=== PATIENT | female | born 1985 | race American Indian/Alaskan Native ===

== ENCOUNTER 2017-07-31 21:55 | Emergency (ER) | payer OTHER ==
[2017-07-31 21:55] VITALS: BMI 24.2
--- NOTE | 2017-07-31 22:29 | ED PDOC ---
Arrival/HPI - General Time Seen by Provider: 07/31/17 22:00 Historian: Patient - History of Present Illness Narrative History of Present Illness (Text): 07/31/17 22:34 31 year old female, with no significant past medical history, currently 2 months , presents to the emergency room complaining of chest pain. She states pain is positional and exacerbated with movement. She states she has had this in the past. 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 She denies shortness of breath, fevers, chills, Nausea, vomiting, diarrhea, or any other complaints. Pt. is requesting a work note. Time/Duration: Other (this morning) Symptom Onset: Gradual Symptom Course: Unchanged Activities at Onset: Light Context: Home Past Medical History - Provider Review Nursing Documentation Reviewed: Yes - Infectious Disease Hx of Infectious Diseases: None - Psychiatric Hx Psychophysiologic Disorder: No Hx Substance Use: No - Anesthesia Hx Anesthesia: No Family/Social History - Physician Review Nursing Documentation Reviewed: Yes Family/Social History: No Known Family HX Smoking Status: hookah Hx Alcohol Use: Yes Hx Substance Use: No Allergies/Home Meds Allergies/Adverse Reactions: Allergies No Known Allergies Allergy (Verified 11/03/15 22:04) Home Medications: Home Meds Medication Instructions Recorded Confirmed No Known Home Med 07/31/17 07/31/17 Review of Systems - Physician Review All systems were reviewed & negative as marked: Yes - Review of Systems Constitutional: absent: Fevers, Night Sweats Respiratory: absent: SOB Cardiovascular: Chest Pain Gastrointestinal: absent: Abdominal Pain, Diarrhea, Nausea, Vomiting Musculoskeletal: absent: Back Pain, Neck Pain Skin: absent: Rash Neurological: absent: Headache, Dizziness Physical Exam Vital Signs Reviewed: Yes Vital Signs Temp Pulse Pulse Resp BP BP Pulse Ox 07/31/17 22:30 98.7 F 81 82 13 125/75 125/75 100 Temperature: Afebrile Blood Pressure: Normal Pulse: Regular Respiratory Rate: Normal Appearance: Positive for: Well-Appearing, Non-Toxic, Comfortable Pain Distress: None Mental Status: Positive for: Alert and Oriented X 3 - Systems Exam Head: Present: Atraumatic, Normocephalic Pupils: Present: PERRL Extroacular Muscles: Present: EOMI Conjunctiva: Present: Normal Mouth: Present: Moist Mucous Membranes Neck: Present: Normal Range of Motion Respiratory/Chest: Present: Clear to Auscultation, Good Air Exchange, Tender to Palpation (anterior chest wall). No: Respiratory Distress, Accessory Muscle Use Cardiovascular: Present: Regular Rate and Rhythm, Normal S1, S2. No: Murmurs Abdomen: Present: Normal Bowel Sounds. No: Tenderness, Distention, Peritoneal Signs Upper Extremity: Present: Normal Inspection. No: Cyanosis, Edema Lower Extremity: Present: Normal Inspection. No: Edema Neurological: Present: GCS=15, CN II-XII Intact, Speech Normal Skin: Present: Warm, Dry, Normal Color. No: Rashes Psychiatric: Present: Alert, Oriented x 3, Normal Insight, Normal Concentration Medical Decision Making ED Course and Treatment: 07/31/17 22:42 Impression: A 31 year old female for chest pain. Differential Diagnosis included but are not limited to: musculoskeletal pain vs. costochondritis Plan: -- Tylenol -- Reassess and disposition Progress Notes: Reviewed EKG, NSR at [address]-segment elevations or depressions, no T-wave inversions, normal intervals. 07/31/17 22:51 On reevaluation the patient feels better and is in no acute distress. I have discussed the results and plan with the patient, who expresses understanding. Patient given the opportunity to ask question, all questions were answered and there is agreement with the plan to discharge the patient home. Patient is stable for discharge. Patient was instructed to follow up with physician/clinic in 1-2 days or return if symptoms persist/worsen or new concerning symptoms arise. - Medication Orders Current Medication Orders: Discontinued Medications Acetaminophen (Tylenol 325mg Tab) 650 mg PO STAT STA Stop: 07/31/17 22:34 Last Admin: 07/31/17 22:56 Dose: 650 mg - Scribe Statement Sunni Juan under supervision of Chelsie Mcclellan Provider Scribe Attestation: All medical record entries made by the Scribe were at my direction and personally dictated by me. I have reviewed the chart and agree that the record accurately reflects my personal performance of the history, physical exam, medical decision making, and the department course for this patient. I have also personally directed, reviewed, and agree with the discharge instructions and disposition. Disposition/Present on Arrival - Present on Arrival Any Indicators Present on Arrival: No History of DVT/PE: No History of Uncontrolled Diabetes: No Urinary Catheter: No History Surgical Site Infection Following: None - Disposition Have Diagnosis and Disposition been Completed?: Yes Diagnosis: Muscular chest pain Disposition: HOME/ ROUTINE Disposition Time: 22:51 Patient Plan: Discharge Patient Problems: Current Active Problems Problem Status Onset Muscular chest pain Acute Condition: GOOD Discharge Instructions (ExitCare): Chest Pain (ED) Additional Instructions: Rest/no lifting /tylenol as directed/follow up with your doctor. Forms: WORK NOTE
[2017-07-31 22:52] VITALS: BP 125/75; TEMP 98.7
[2017-07-31 23:21] VITALS: PULSE 88; RESP 18; O2SAT 99
--- NOTE | 2017-08-01 22:08 | CARD ---
APPROVED REPORT EKG Measurement Heart [id number] <Conclusion> Normal sinus rhythm Normal ECG
== END 2017-07-31 23:25 | disposition home or self-care (01) ==
LOC: ED 21:55
DX: R07.9 Chest pain, unspecified (principal)

== ENCOUNTER 2017-08-10 03:21 | Emergency (ER) | payer OTHER ==
[2017-08-10 03:52] VITALS: BMI 24.9
[2017-08-10 04:03] VITALS: O2SAT 99
--- NOTE | 2017-08-10 04:05 | ED PDOC ---
Arrival/HPI - General Chief Complaint: Female Genitourinary Time Seen by Provider: 08/10/17 03:34 Historian: Patient - History of Present Illness Narrative History of Present Illness (Text): 08/10/17 04:05 Judie Jacques is a 31 year old female, with no significant past medical history, currently 10 weeks , P:2 A:0, presents to the Emergency department complaining of some bright red vaginal spotting after having sexual intercourse tonight. Patient denies any complication during her previous complications. Patient denies any abdominal pain, fever, chills, nausea, vomiting, urinary problems or any other complaints. Time/Duration: Prior to Arrival Symptom Onset: Gradual Symptom Course: Unchanged Activities at Onset: Light Context: Home Past Medical History - Provider Review Nursing Documentation Reviewed: Yes - Infectious Disease Hx of Infectious Diseases: None - Cardiac Hx Cardiac Disorders: No - Psychiatric Hx Psychophysiologic Disorder: No Hx Substance Use: No - Anesthesia Hx Anesthesia: No Family/Social History - Physician Review Nursing Documentation Reviewed: Yes Family/Social History: No Known Family HX Smoking Status: Denies Hx Alcohol Use: Yes Hx Substance Use: No Allergies/Home Meds Allergies/Adverse Reactions: Allergies No Known Allergies Allergy (Verified 11/03/15 22:04) Home Medications: Home Meds Medication Instructions Recorded Confirmed No Known Home Med 07/31/17 08/10/17 Review of Systems - Physician Review All systems were reviewed & negative as marked: Yes - Review of Systems Constitutional: Normal Eyes: Normal. absent: Eye Pain ENT: Normal Respiratory: Normal. absent: SOB, Cough Cardiovascular: Normal. absent: Chest Pain Gastrointestinal: Normal. absent: Abdominal Pain, Diarrhea, Nausea, Vomiting Genitourinary Female: Vaginal Bleeding (+vaginal spotting). absent: Dysuria, Hematuria Musculoskeletal: Normal. absent: Back Pain, Neck Pain Skin: Normal. absent: Rash Neurological: Normal. absent: Headache, Dizziness Endocrine: Normal. absent: Diaphoresis Psychiatric: Normal Physical Exam Vital Signs Reviewed: Yes Vital Signs Temp Pulse Resp BP Pulse Ox 08/10/17 03:52 99.0 F 68 18 118/72 99 Temperature: Afebrile Blood Pressure: Normal Pulse: Regular Respiratory Rate: Normal Appearance: Positive for: Well-Appearing, Non-Toxic, Comfortable Pain Distress: None Mental Status: Positive for: Alert and Oriented X 3 - Systems Exam Head: Present: Atraumatic, Normocephalic Pupils: Present: PERRL Extroacular Muscles: Present: EOMI Conjunctiva: Present: Normal Mouth: Present: Moist Mucous Membranes. No: Dry Neck: Present: Normal Range of Motion Respiratory/Chest: Present: Clear to Auscultation, Good Air Exchange. No: Respiratory Distress, Accessory Muscle Use Cardiovascular: Present: Regular Rate and Rhythm, Normal S1, S2. No: Murmurs Abdomen: Present: Normal Bowel Sounds. No: Tenderness, Distention, Peritoneal Signs Genitourinary/Pelvic Exam: Present: Normal External Genitalia, Vaginal Bleeding (+scanty blood in vaginal introitus. 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 No: Vaginal Lesions, Adenexal Tenderness, Cervical Motion Tendernes Back: Present: Normal Inspection Upper Extremity: Present: Normal Inspection. No: Cyanosis, Edema Lower Extremity: Present: Normal Inspection. No: Edema Neurological: Present: GCS=15, CN II-XII Intact, Speech Normal Skin: Present: Warm, Dry, Normal Color. No: Rashes Psychiatric: Present: Alert, Oriented x 3, Normal Insight, Normal Concentration Medical Decision Making ED Course and Treatment: 08/10/17 04:06 Impression: 31 year old female, 10 months , presents for vaginal spotting after intercourse. Plan: -- Labs, blood type and screen, Beta-HCG -- Urinalysis -- US transvaginal -- Reassess and disposition Prior Visits: On 07/31/2017, patient presented to the Emergency department complaining of chest pain. Patient was treated for muscular chest pain and was discharged home. Progress Notes: 08/10/17 06:25 Reviewed sono, Transvaginal US shows: Gestation: Single live intrauterine gestation. heart rate of 154 beats per minute. [place]-rump length of 4.97 cm, correlating with gestational age of 11 weeks 5 days. Uterus/cervix: No subchorionic hemorrhage. No cervical dilatation or effacement. Ovaries: Not visualized. No adnexal masses. Free fluid: No significant free fluid. IMPRESSION: 1. Single live intrauterine gestation. 08/10/17 06:25 On reevaluation the patient feels better and is in no acute distress. I have discussed the results and plan with the patient, who expresses understanding. Patient given the opportunity to ask question, all questions were answered and there is agreement with the plan to discharge the patient home. Patient is stable for discharge. Patient was instructed to follow up with physician/clinic in 1-2 days or return if symptoms persist/worsen or new concerning symptoms arise. - Lab Interpretations Lab Results: 08/10/17 04:20 08/10/17 04:20 Lab Results 08/10/17 04:20: Blood Type B POSITIVE, Antibody Screen Negative, BBK History Checked Patient has bt 08/10/17 04:20: WBC 8.2 D, RBC 4.53, Hgb 13.4, Hct 38.7, MCV 85.4, MCH 29.6, MCHC 34.6, RDW 12.1, Plt Count 258, MPV 11.0 08/10/17 04:20: Beta HCG, Quant 78578.00 H 08/10/17 04:20: Sodium 136, Potassium 3.7, Chloride 103, Carbon Dioxide 25, Anion Gap 11, BUN 12, Creatinine 0.8, Est GFR ( Amer) > 60, Est GFR (Non- Af Amer) > 60, Random Glucose 83, Calcium 9.8, Total Bilirubin 0.4, AST 21, ALT 27, Alkaline Phosphatase 43, Total Protein 7.4, Albumin 4.2, Globulin 3.2, Albumin/Globulin Ratio 1.3 I have reviewed the lab results: Yes - RAD Interpretation Radiology Orders: 08/10/17 04:05 AGE [US] Stat Legal Document Assistant: Radiologist - Laurenibsriram Statement The provider has reviewed the documentation as recorded by the Laurenibsriram Javed under supervision of Chelsie Mcclellan All medical record entries made by the Laurenibsriram were at my direction and personally dictated by me. I have reviewed the chart and agree that the record accurately reflects my personal performance of the history, physical exam, medical decision making, and the department course for this patient. I have also personally directed, reviewed, and agree with the discharge instructions and disposition. Disposition/Present on Arrival - Present on Arrival Any Indicators Present on Arrival: No History of DVT/PE: No History of Uncontrolled Diabetes: No Urinary Catheter: No History of Decub. 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
[2017-08-10 04:46] LABS: ALB/GLOB RATIO 1.3 (1.1-1.8); ALKALINE PHOSPHATASE 43 U/L (38-126); ALT/SGPT 27 U/L (7-56); AST/SGOT 21 U/L (14-36); BILIRUBIN,TOTAL 0.4 mg/dL (0.2-1.3); BLOOD UREA NITROGEN 12 mg/dL (7-21); CALCIUM 9.8 mg/dL (8.4-10.5); CARBON DIOXIDE 25 mmol/L (21-33); CHLORIDE 103 mmol/L (98-107); GFR AFRICAN-AMERICAN > 60; GLUCOSE,RANDOM 83 mg/dL (70-110); POTASSIUM 3.7 mmol/L (3.6-5.0); SODIUM 136 mmol/L (132-148); TOTAL PROTEIN 7.4 g/dL (5.8-8.3)
[2017-08-10 04:47] LABS: HEMATOCRIT 38.7 % (36.0-48.0); MEAN CELL VOLUME 85.4 fl (80.0-105.0); MEAN CORPUSCULAR HEMOGLOBIN 29.6 pg (25.0-35.0); WHITE BLOOD COUNT 8.2 10^3/ul (4.5-11.0)
[2017-08-10 04:48] LABS: MEAN CORPUSCULAR HGB CONC 34.6 g/dl (31.0-37.0); RED CELL DISTRIBUTION WIDTH 12.1 % (11.5-14.5)
--- NOTE | 2017-08-10 06:25 | US ---
EXAM: US First Trimester, Transabdominal CLINICAL HISTORY: 31 years old, female; Signs and symptoms; Lmp or gestational age (in weeks): 05/31/17; Other: Bleeding; TECHNIQUE: Real-time transabdominal obstetrical ultrasound of the maternal pelvis and a first trimester with image documentation. COMPARISON: No relevant prior studies available. FINDINGS: Gestation: Single live intrauterine gestation. heart rate of 154 beats per minute. [place]-rump length of 4.97 cm, correlating with gestational age of 11 weeks 5 days. Uterus/cervix: No subchorionic hemorrhage. No cervical dilatation or effacement. Ovaries: Not visualized. No adnexal masses. Free fluid: No significant free fluid. IMPRESSION: 1. Single live intrauterine gestation.
[2017-08-10 06:43] VITALS: RESP 16; TEMP 98.7
[2017-08-10 06:44] VITALS: BP 121/70; PULSE 69
== END 2017-08-10 06:44 | disposition home or self-care (01) ==
LOC: ED 03:21
DX: O20.0 Threatened abortion (principal); Z3A.10 10 weeks gestation of pregnancy